=== PATIENT | female | born 1950 | race Hispanic/Latino ===

== ENCOUNTER 2018-06-11 07:26 | Inpatient (IN) | payer SELFPAY ==
[2018-06-11 08:03] LABS: #Basophils 0.1 thou/uL (0.0-0.2); #Eosinphils 0.3 thou/uL (0.0-0.7); #Lymphocytes 3.7 thou/uL (1.20-3.40); #Monocytes 0.6 thou/uL (0.11-0.59); #Neutrophils 5.4 thou/uL (1.40-6.50); %Basophils 0.6 % (0.0-1.0); %Eosinophils 3.1 % (0.0-10.0); %Lymphocytes 36.8 % (21.0-51.0); %Monocytes 6.1 % (0.0-10.0); %Neutrophils 53.5 % (42.0-75.0); Hemoglobin 14.5 g/dL (12.0-16.0); Mean Corpuscular HGB CONC 33.7 g/dL (32.0-36.0); Mean Corpuscular Hemoglobin 29.7 pg (27.0-31.0); Platelet Count 303 thou/uL (130-400); RBC Distribution Width 11.4 % (11.5-14.5); White Blood Cell (WBC) Count 10.1 thou/uL (4.8-10.8)
[2018-06-11] MEDS ORDERED: Nitroglycerin 100MG/250ML BOT 250 ML ONE (08:14)
[2018-06-11] MEDS ORDERED: Fentanyl 100 MCG/2 ML VIAL ONE ×2 (08:15→11:53)
[2018-06-11 08:16] LABS: ALT (SGPT) 29 U/L (8-55); AST (SGOT) 38 U/L (5-34); Albumin 4.1 g/dL (3.4-4.8); Alkaline Phosphatase 219 U/L (40-150); Anion Gap 17 mmol/L (10-20); BUN (Urea Nitrogen) 14 mg/dL (9.8-20.1); Bilirubin, Total 0.4 mg/dL (0.2-1.2); CK (CPK) 37 U/L (29-168); Calc. Creatinine Clearance 0 mL/min (70-130); Calcium 9.7 mg/dL (7.8-10.44); Carbon Dioxide 19 mmol/L (23-31); Chloride 103 mmol/L (98-107); Estimated GFR-MDRD 73; Glucose 353 mg/dL (80-115); Protein, Total 8.1 g/dL (6.0-8.3); Sodium 135 mmol/L (136-145)
[2018-06-11] MEDS ORDERED: Heparin 10,000 UNITS/1 ML VIAL ONE ×2 (08:28→08:45)
[2018-06-11 08:37] LABS: CKMB 0.7 ng/mL (0-6.6)
[2018-06-11 08:50] LABS: PTT 26.6 SEC (22.9-36.1); Prothrombin Time 13.2 SEC (12.0-14.7)
[2018-06-11] MEDS ORDERED: Metoprolol Tartrate 5 MG/5 ML VIAL ONE (11:11)
[2018-06-11] MEDS ORDERED: Aspirin Chewable 81 MG TAB ONE (11:11)
[2018-06-11] MEDS ORDERED: Heparin 10,000 UNITS/ 10 ML VIAL ONE (11:11)
[2018-06-11] MEDS ORDERED: Lisinopril 2.5 MG TAB ONE (11:11)
[2018-06-11] MEDS ORDERED: Nitroglycerin 0.4 MG TAB (25 Tab Bottle) ONE (11:11)
[2018-06-11] MEDS ORDERED: Lisinopril 10 MG TAB ONE (11:58)
[2018-06-11] MEDS ORDERED: Carvedilol 3.125 MG TAB ONE (11:59)
--- NOTE | 2018-06-11 12:33 | HP ---
REASON FOR ADMISSION: Acute myocardial infarction. HISTORY OF PRESENT ILLNESS: Ms. Musa is a 67-year-old woman, who has a history of high blood pressure. She has been having chest pain off and on for about a week. The pain, however, became extremely intense this morning and she presented to the hospital. She had severe ST elevation in the inferior leads compatible with inferior myocardial infarction. PAST MEDICAL HISTORY: 1. Hypertension. 2. Negative for alcohol or tobacco abuse. She said she had a "cardiac procedure " done about 15 years ago, unknown type. ALLERGIES: NONE RECORDED. FAMILY HISTORY: Unknown. SOCIAL HISTORY: No alcohol or tobacco abuse. REVIEW OF SYSTEMS: Not easily obtainable. She speaks [place]ian only, but from what we can tell, the only positive is severe chest pain. PHYSICAL EXAMINATION: GENERAL: This is a very ill-appearing 67-year-old woman, in some distress with severe chest pain. VITAL SIGNS: Blood pressure was high at 170 to 180 systolic at times, otherwise 160; diastolic in the 80 to 90 range; pulse in the 70s. NECK: Neck veins are normal. Carotid, normal upstrokes. LUNGS: Clear. No wheezing. CARDIAC: Normal S1, normal S2. ABDOMEN: Soft, nontender. EXTREMITIES: No clubbing. No cyanosis. There is no edema. Femoral pulses are very difficult to feel, they feel very deep. The pedal pulses, however, were strong dorsalis pedis pulse. PERTINENT LABORATORY DATA: The troponin level was only 0.085. Potassium is 4.0 , sodium is 135. The EKG revealed sinus rhythm with ST elevation in the inferior leads compatible with acute inferior myocardial infarction. Subsequent the EKG showed more intense ST elevation especially at 3, AVF and lead [address] depression in V2. This is less prominent. The initial EKG at 07:35 a.m. ASSESSMENT: 1. Acute inferior ST-segment elevation in inferior leads with ST depression in the anterior leads. 2. History of hypertension. PLAN: Proceed to cardiac catheterization. Discussed risks. The nurse also discussed risks with the patient. Emergency consent was obtained. The patient was taken to cardiac catheterization lab in an emergency situation, found to have a completely occluded right coronary artery, successfully stented. She also has 3-vessel disease. Job ID: [id number] [facility]
[2018-06-11 14:06] LABS: Troponin I 59.932 ng/mL (< 0.028)
[2018-06-11] MEDS ORDERED: Iopamidol 370 76% 50 ML VIAL FS ONE (15:45)
[2018-06-11] MEDS ORDERED: Iopamidol 370 76% 100 ML VIAL ONE (15:45)
[2018-06-11 17:56] VITALS: BMI 23.8
[2018-06-11] MEDS ORDERED: Ondansetron PF 4 MG/2 ML Vial SLOW IVP PRN (20:24)
[2018-06-11] MEDS ORDERED: Fentanyl 100 MCG/2 ML VIAL SLOW IVP PRN (20:24)
[2018-06-11 20:57] LABS: Critical Call Chem Troponin I RESULT DECREASING; Troponin I 50.495 ng/mL (< 0.028)
[2018-06-11] MEDS: Carvedilol 3.125 MG TAB PO SCH (21:03)
[2018-06-11] MEDS: TICAGRELOR 90 MG TABLET PO SCH (21:03)
[2018-06-11] MEDS ORDERED: Sodium Chloride 0.9% 1,000 ML IV SCH (21:30)
[2018-06-12 05:22] LABS: ALT (SGPT) 32 U/L (8-55); AST (SGOT) 86 U/L (5-34); Albumin 3.3 g/dL (3.4-4.8); Alkaline Phosphatase 164 U/L (40-150); Anion Gap 11 mmol/L (10-20); BUN (Urea Nitrogen) 10 mg/dL (9.8-20.1); Bilirubin, Total 0.3 mg/dL (0.2-1.2); Calc. Creatinine Clearance 89 mL/min (70-130); Calcium 8.7 mg/dL (7.8-10.44); Carbon Dioxide 21 mmol/L (23-31); Cardiac Risk 5.4 (Less than 4.5); Chloride 107 mmol/L (98-107); Cholesterol 196 mg/dl (< 200 Desired); Estimated GFR-MDRD Greater than 90; Globulin 3.2 g/dL (2.4-3.5); Glucose 235 mg/dL (80-115); HDL Cholesterol 36 mg/dL (>60 Neg Risk); LDL Cholesterol, Calculated 101 mg/dL; Potassium 3.5 mmol/L (3.5-5.1); Protein, Total 6.5 g/dL (6.0-8.3); Sodium 135 mmol/L (136-145); Triglycerides 294 mg/dL (Less than 150)
[2018-06-12] MEDS: Aspirin 81 mg Enteric Coated Tablet PO SCH (08:41)
[2018-06-12] MEDS: Carvedilol 3.125 MG TAB PO SCH (08:41)
[2018-06-12] MEDS: TICAGRELOR 90 MG TABLET PO SCH ×2 (08:42→20:46)
[2018-06-12] MEDS ORDERED: Lisinopril 2.5 MG TAB PO SCH (09:00)
[2018-06-12] MEDS ORDERED: Prevnar 13-Val Conj/PF 0.5 ML SYRINGE IM ONE (09:00)
--- NOTE | 2018-06-12 09:55 | PRG ---
DATE OF SERVICE: 06/12/2018 SUBJECTIVE: Ms. Musa is feeling well today. No chest pain or pressure. OBJECTIVE: VITAL SIGNS: Her blood pressure is somewhat elevated at 127/100, pulse is in the 80s. LUNGS: Clear. CARDIAC: Normal S1, normal S2. ABDOMEN: Soft and nontender. EXTREMITIES: No edema. PERTINENT LABORATORY DATA: The potassium was 3.5. Her cholesterol LDL was 101, that is after being in the hospital for a day. Peak troponin was 50.5. ASSESSMENT: 1. Multivessel coronary artery disease. 2. Status post stent implantation for an acute inferior myocardial infarction done successfully. PLAN: 1. Increase lisinopril. 2. Increase carvedilol. 3. Aspirin. 4. Ticagrelor. 5. Increase activity. 6. The patient wishes to go home today. She is really not ready to go today. Hopefully home tomorrow. May need to come back for a stent implantation in her LAD at a later time. Job ID: [id number]
[2018-06-12] MEDS: Carvedilol 6.25 MG TAB PO SCH (20:46)
[2018-06-12] MEDS: Atorvastatin Calcium 40 MG TAB PO SCH (20:46)
[2018-06-13 07:05] LABS: Anion Gap 12 mmol/L (10-20); BUN (Urea Nitrogen) 9 mg/dL (9.8-20.1); Calc. Creatinine Clearance 114 mL/min (70-130); Calcium 8.6 mg/dL (7.8-10.44); Carbon Dioxide 21 mmol/L (23-31); Chloride 107 mmol/L (98-107); Estimated GFR-MDRD Greater than 90; Glucose 257 mg/dL (80-115); Potassium 3.5 mmol/L (3.5-5.1); Sodium 136 mmol/L (136-145)
[2018-06-13] MEDS ORDERED: Lisinopril 5 MG TAB PO SCH (09:00)
[2018-06-13] MEDS: TICAGRELOR 90 MG TABLET PO SCH (09:05)
[2018-06-13] MEDS: Aspirin 81 mg Enteric Coated Tablet PO SCH (09:05)
[2018-06-13] MEDS: Carvedilol 6.25 MG TAB PO SCH (09:05)
[2018-06-13] MEDS ORDERED: Clopidogrel Bisulfate 300 MG TAB PO SCH (10:15)
--- NOTE | 2018-06-13 18:33 | PRG ---
DATE OF SERVICE: 06/13/2018 SUBJECTIVE: Ms. Musa is doing well. No complaints. She wishes to go home. No family here currently. OBJECTIVE: VITAL SIGNS: Blood pressure 127/70, pulse 72 and regular. LUNGS: Clear. CARDIAC: Normal S1, normal S2. ASSESSMENT: 1. Status post inferior myocardial infarction, successfully treated with stenting. 2. She has a left anterior descending artery 90% lesion, relatively long lesion. PLAN: I think it is best to let her recover from this inferior infarct due to its relatively large distribution and bring her back hopefully for stenting of the LAD, somewhat complicated by the indication that she does not have any insurance or Medicare. Hopefully, we will be able to be successful to get these procedures done. We are going to treat with medication. She also needs to have her diabetes treated. Her blood sugar was still 257 this morning. It was 353 at the time of admission. She will need to have a primary care physician to care for her diabetes. Job ID: [id number]
[2018-06-13] MEDS ORDERED: Dextrose 5% in Water 1,000 ML IV PRN (18:47)
[2018-06-13] MEDS ORDERED: Dextrose 50% Abboject 50 ML SYRINGE IVP PRN (18:47)
[2018-06-13] MEDS ORDERED: Insulin Regular 300 UNITS/3 ML VIAL SC PRN (18:48)
[2018-06-13] MEDS: Atorvastatin Calcium 40 MG TAB PO SCH (20:43)
[2018-06-14] MEDS ORDERED: metFORMIN 500 MG TAB PO SCH (08:00)
[2018-06-14] MEDS ORDERED: Lisinopril 10 MG TAB PO SCH (09:00)
[2018-06-14] MEDS ORDERED: Clopidogrel Bisulfate 75 MG TAB PO SCH (09:00)
[2018-06-14] MEDS: Aspirin 81 mg Enteric Coated Tablet PO SCH (09:08)
[2018-06-14] MEDS ORDERED: Carvedilol 6.25 MG TAB PO SCH ×2 (09:30→21:00)
[2018-06-14 10:19] VITALS: BP 129/80
[2018-06-14 12:17] VITALS: TEMP 99.5
--- NOTE | 2018-06-14 13:14 | DIS ---
DATE OF ADMISSION: 06/11/2018 DATE OF DISCHARGE: 06/14/2018 FINAL DIAGNOSES: 1. Acute ST-elevation myocardial infarction. 2. Diabetes. 3. Hypercholesterolemia. 4. Hypertension. MEDICATIONS: At the time of discharge; 1. Aspirin 81 mg a day. 2. Atorvastatin 40 mg a day. 3. Carvedilol 12.5 mg twice a day. 4. Plavix 75 mg a day. 5. Lisinopril 10 mg a day. 6. Metformin 500 mg twice a day. Arrangements are being made to get the patient's primary care physician to care for her diabetes, which is newly diagnosed. HOSPITAL COURSE: The patient presents to the hospital with acute inferior myocardial infarction on 06/11/2018. She was found to have a completely occluded large diameter right coronary artery. She underwent emergency stent implantation with successful result. The patient does have 3-vessel coronary artery disease. She has a 90% LAD lesion proximal and a 90% distal circumflex lesion in a small distribution, it probably cannot be bypassed. There is also some disease in the distal branch of the right coronary, ejection fraction is 40%. I think her best option is medical therapy followed by percutaneous stenting in the LAD, and the circumflex, I think is probably not bypassable. The patient needs to recover from the inferior myocardial infarction, hopefully there will be some improvement in wall motion. It is a long LAD lesion. Peak troponin level here was 59.9. We would let her heart muscle to recover. It will probably take either two stents or potentially one long stent in her LAD. The patient understands it is important to control the diabetes, exercise, take the medicines as prescribed. Her grandson was here. We stressed all this to him. Eventually, I think she would be best served by bring her back in and stenting her LAD if that is possible. The other option would be bypass surgery, but essentially, we would be doing just for the LAD. The right coronary is a very large vessel. The patient will be released home at this time with a guarded long-term prognosis. Job ID: [id number]
== END 2018-06-14 16:00 | disposition home or self-care (01) | DRG 247 ==
LOC: ERS 07:26 → CCL 08:54 → CCU 17:40 → 2NO 06-12 15:36
PROVIDERS: ADMIT Internal Medicine Cardiovascular Disease; ATTEND Internal Medicine Cardiovascular Disease
PROC: 027034Z Dilation of Coronary Artery, One Artery with Drug-eluting Intraluminal Device, Percutaneous Approach (ICD-10-PCS; principal; 2018-06-11)
PROC: 4A023N7 Measurement of Cardiac Sampling and Pressure, Left Heart, Percutaneous Approach (ICD-10-PCS; 2018-06-11)
PROC: B2111ZZ Fluoroscopy of Multiple Coronary Arteries using Low Osmolar Contrast (ICD-10-PCS; 2018-06-11)
PROC: B2151ZZ Fluoroscopy of Left Heart using Low Osmolar Contrast (ICD-10-PCS; 2018-06-11)
DX: I21.19 ST elevation (STEMI) myocardial infarction involving other coronary artery of inferior wall (principal); E11.9 Type 2 diabetes mellitus without complications; E78.00 Pure hypercholesterolemia, unspecified; I10 Essential (primary) hypertension; I25.10 Atherosclerotic heart disease of native coronary artery without angina pectoris; Z79.82 Long term (current) use of aspirin; Z79.01 Long term (current) use of anticoagulants; Z79.84 Long term (current) use of oral hypoglycemic drugs
CPT/HCPCS: 36415; 36416; 76942; 80048; 80053; 80061; 82550; 82553; 83036; 84484; 85025; 85347; 85610; 85730; 92928; 93005; 93458; 96374; 96375; C1769; C1887; C9600; J1644; J1815; J3010; Q9967